=== PATIENT | female | born 1960 | race Caucasian/White ===

== ENCOUNTER 2019-01-14 10:54 | Inpatient (IN) | payer OTHER ==
[~2019-01-14] VITALS: Ht 160 cm; Wt 76.9 kg
--- NOTE | ~2019-01-14 | CON ---
[address] [address] CONSULTATION Name: MEGAN DALEY Room: [address] IN ..#: [id number] Admission: 01/14/19 Attend Phys: Daniel Hernandez Discharge: Date of : 60 Report #: [id number] THIS REPORT FOR: //name// CC: Zonia Bernardo DATE OF SERVICE: 01/15/2019 HISTORY OF PRESENT ILLNESS: This is a very pleasant 58-year-old female with past medical history significant for hypertension, status post gastric sleeve surgery who is presenting for evaluation of acute-onset epigastric abdominal pain. The patient reports she has 10/10 epigastric pain starting yesterday. The pain was constant, nonradiating, localized to the epigastrium. Worse on eating and relieved by pain medication. The patient reports this is the first time she has had this kind of pain. The patient did have gallbladder taken out a couple of years back, she reports for abdominal pain, which was not similar to the current pain she is experiencing. The patient reports associated nausea. No vomiting, hematemesis, hematochezia, melena or any weight loss. PAST MEDICAL HISTORY: Hypertension. PAST SURGICAL HISTORY: The patient had gastric sleeve surgery in 2016, cholecystectomy in 2018 and hysterectomy in the remote past. FAMILY HISTORY: No family history of colorectal or the Mirza-related neoplasia. SOCIAL HISTORY: The patient reports smoking half pack of cigarettes per day and reports taking alcohol on a daily basis. She denies any recreational drug use. REVIEW OF SYSTEMS: A comprehensive 10-point review of systems is negative except for what was mentioned in the HPI. PHYSICAL EXAMINATION: VITAL SIGNS: Temperature ____, pulse 58, respirations 18 and blood pressure 128/67. GENERAL: The patient is alert, awake, oriented x 3. HEENT: Pupils are equal, round and reactive to light and accommodation. Mucous membranes are moist. There is no congestion. LUNGS: Clear to auscultation bilaterally. CARDIOVASCULAR: Rate and rhythm regular. S1, S2 present. ABDOMEN: Soft, mild tenderness to palpation in the epigastric region. EXTREMITIES: Warm and well perfused. There is no edema. LABORATORY DATA: Hemoglobin 11.7, hematocrit 34.4, platelet count 213 and WBC count 7.4. Sodium 144, potassium 4.6, chloride 111, bicarbonate 23, BUN 14, creatinine 0.6. Urine THC screen, cocaine screen, PCP screen and opioid screen, [place] [address] CONSULTATION Name: MEGAN DALEY Room: [address]#: [id number] Admission: 01/14/19 Attend Phys: Daniel Hernandez Discharge: Date of : 60 Report #: [id number] all are positive. ASSESSMENT AND PLAN: Pleasant 58-year-old female with past medical history of hypertension, who is presenting for acute-onset epigastric abdominal pain. The patient was found to have elevated lipase on admission of 4251. Some edema and fluid collection is seen around the pancreas and the second portion of duodenum. The patient appears to have mild acute pancreatitis without any significant local complications. I would recommend getting an EUS as an outpatient to followup on her acute idiopathic pancreatitis. Continue conservative management. Advance diet as tolerated. Thank you for this consultation and please feel free to call or contact us with any further questions. By: [id number] Pollock MD /nt
[2019-01-14 11:02] VITALS: BP 133/70
[2019-01-14] MEDS ORDERED: LOTENSIN10 MG PO (11:07)
[2019-01-14 11:30] LABS: HEMATOCRIT 43.5 % (37.0-47.0); HEMOGLOBIN 14.7 gm/dL (12.0-15.0); MCH 31.8 pg (26.0-34.0); MCHC 33.7 g/dL (28.0-37.0); MCV 94.3 fL (80.0-100.0); MPV 7.9 fl. (7.2-11.1); NUCLEATED RBCS 0 /100WBC; PLATELET COUNT* 314 thou/uL (150-400); RBC 4.61 mil/uL (4.20-5.00); RDW-CV 13.2 % (10.5-14.5); WBC 7.1 thou/uL (4.0-11.0)
[2019-01-14 11:39] LABS: ANION GAP 13 mmol/L (7-16); BUN 14 mg/dL (7-18); CALCIUM 9.1 mg/dL (8.5-10.1); CHLORIDE 105 mmol/L (98-107); CO2 23 mmol/L (21-32); CREATININE 0.9 mg/dL (0.6-1.3); GLUCOSE 140 mg/dL (70-99); POTASSIUM 3.5 mmol/L (3.5-5.1); SODIUM 141 mmol/L (136-145)
[2019-01-14 11:48] LABS: ALBUMIN 3.8 g/dL (3.4-5.0); ALKALINE PHOSPHATASE 76 U/L (46-116); SGOT 69 U/L (15-37); SGPT 38 U/L (30-65); TOTAL BILIRUBIN 1.2 mg/dL (<0.1-1.0); TOTAL PROTEIN 7.3 g/dL (6.4-8.2); TROPONIN-I LEVEL <0.06 ng/mL (<0.06)
[2019-01-14 12:00] LABS: ABSOLUTE EOSINOPHILS 0.1 thou/uL (0.0-0.7); ABSOLUTE MONOCYTES 0.2 thou/uL (0.0-1.2); ABSOLUTE NEUTROPHILS 1.8 thou/uL (1.6-8.1); ATYPICAL LYMPHS 11 %; PLATELET ESTIMATE ADEQUATE
[2019-01-14 12:03] LABS: LIPASE 4251 U/L (73-393)
[2019-01-14 14:36] VITALS: BP 111/69
[2019-01-14 14:47] LABS: CALCIUM 8.1 mg/dL (8.5-10.1); CREATININE 0.7 mg/dL (0.6-1.3); MAGNESIUM 1.4 mg/dL (1.8-2.4); POTASSIUM 3.7 mmol/L (3.5-5.1)
[2019-01-14 15:30] VITALS: BP 128/64
--- NOTE | 2019-01-14 16:06 | NUR ---
ASSESSMENT COMPLETE. PT ADMITTED WITH PANCREATITIS. PT HAS IV FLUIDS INFUSING, NPO AT THIS TIME. GI CONSULT CALLED IN. IV ABX GIVEN ORDERED. PT IS ON ROOM AIR, VSS. PT IS NSR ON TELE MONITOR. UP WITH STANDBY ASSIST. SEE ASSESSMENT AND VITALS FOR OTHER DETAILS. CALL LIGHT WITHIN REACH, WILL CONTINUE PLAN OF CARE
[2019-01-14 16:30] VITALS: BP 119/77
[2019-01-14 19:40] VITALS: BP 126/72
[2019-01-14 23:51] VITALS: BP 119/71
[2019-01-15 04:00] VITALS: BP 128/71
--- NOTE | 2019-01-15 04:59 | NUR ---
PATIENT PROGRESSING TOWARDS GOALS: PATIENT REMAINS ON ROOM AIR, VSS. PATIENT DENIES PAIN, DISCOMFORT, AND NAUSEA. NO SIGNS OF ALCOHOL WITHDRAW THIS SHIFT. PATIENT OBSERVED SLEEPING ON HOURLY ROUNDS. IVF INFUSING PER ORDERS. NPO FOR GI CONSULT. CALL LIGHT WITHIN REACH
[2019-01-15 05:31] LABS: ABSOLUTE EOSINOPHILS 0.7 thou/uL (0.0-0.7); ABSOLUTE MONOCYTES 0.4 thou/uL (0.0-1.2); ABSOLUTE NEUTROPHILS 4.3 thou/uL (1.6-8.1); BASOPHILS 0.2 %; EOSINOPHILS 8.9 %; HEMATOCRIT 34.4 % (37.0-47.0); LYMPHOCYTES 27.3 %; MCH 32.8 pg (26.0-34.0); MCHC 34.1 g/dL (28.0-37.0); MCV 96.1 fL (80.0-100.0); MONOCYTES 5.5 %; MPV 8.5 fl. (7.2-11.1); NUCLEATED RBCS 0 /100WBC; POLYS 58.1 %; RBC 3.58 mil/uL (4.20-5.00); RDW-CV 13.2 % (10.5-14.5); WBC 7.4 thou/uL (4.0-11.0)
[2019-01-15 05:41] LABS: HEMOGLOBIN 11.7 gm/dL (12.0-15.0); PLATELET COUNT* 213 thou/uL (150-400)
[2019-01-15 06:00] LABS: CALCIUM 7.8 mg/dL (8.5-10.1); CREATININE 0.6 mg/dL (0.6-1.3); POTASSIUM 4.6 mmol/L (3.5-5.1)
[2019-01-15 06:13] LABS: ALBUMIN 2.8 g/dL (3.4-5.0); CALCIUM 7.5 mg/dL (8.5-10.1); CREATININE 0.7 mg/dL (0.6-1.3); TOTAL BILIRUBIN 1.2 mg/dL (<0.1-1.0); TOTAL PROTEIN 5.6 g/dL (6.4-8.2)
[2019-01-15 07:51] VITALS: BP 121/60
[2019-01-15 09:58] LABS: AMP/METHAMP Negative (Negative); BARBITURATES Negative (Negative); BENZODIAZEPINES Negative (Negative); METHADONE Negative (Negative); OPIATES POSITIVE (Negative); URINE BILIRUBIN NEGATIVE (Negative); URINE BLOOD NEGATIVE (Negative); URINE CLARITY CLEAR; URINE COLOR YELLOW; URINE GLUCOSE-RANDOM NEGATIVE (Negative); URINE KETONES TRACE (Negative); URINE LEUKOCYTES-REFLEX NEGATIVE (Negative); URINE NITRITE-REFLEX NEGATIVE (Negative); URINE PROTEIN NEGATIVE (Negative); URINE SPECIFIC GRAVITY >= 1.030 (1.005-1.030); URINE UROBILINOGEN 0.2 E.U./dl (0.2-1.0)
--- NOTE | 2019-01-15 10:53 | NUR ---
Pt is A&O. Resides at home with her . Active and independent. No DME. No hx of HH or SNF. Goal is home at dc, no needs anticipated.
[2019-01-15 10:54] LABS: COCAINE POSITIVE (Negative); PCP POSITIVE (Negative); THC POSITIVE (Negative)
[2019-01-15 11:36] VITALS: BP 128/67
[2019-01-15 15:31] VITALS: BP 130/73
--- NOTE | 2019-01-15 15:34 | EKG ---
[place] [address] ELECTROCARDIOGRAM REPORT Name: MEGAN DALEY Room: [address] ADM IN ..#: [id number] Admission: 01/14/19 Attend Phys: Daniel Hernandez Discharge: Date of : 60 Report #: [id number] THIS REPORT FOR: //name// [facility] ED Test Date: 2019-01-14 Test Time: 11:32:07 Pat Name: MEGAN DALEY Department: Room: [facility] [place] Gender: F [place] Burnisher: Angela LOPEZ : 1960 Requested By: Spring Chapman Order Number: [id number] MD: Yasir Natarajan Measurements Intervals [place] Rate: 94 P: 42 NH: 138 QRS: 2 QRSD: 92 T: 58 QT: 390 QTc: 488 Interpretive Statements Sinus rhythm Borderline prolonged QT interval No previous ECG available for comparison Electronically Signed On 01-15-2019 15:34:45 CDT by Yasir Natarajan [email or web address] <ELECTRONICALLY SIGNED> By: Yasir Natarajan MD, [facility] 01/15/19 1534 1132 1132 Yasir Natarajan MD, [facility] /EPI
--- NOTE | 2019-01-15 16:30 | NUR ---
ASSESSMENT COMPLETE. PT ALERT AND ORIENTED X4. PT UP AD TATA WITH STEADY GAIT. TOLERATING CLEAR LIQUIDS AND DENIES PAIN AND N/V. PT HAS IV FLUIDS INFUSING. SR ON TELE MONITOR, ST AT TIMES IN 120'S WITH ACTIVITY. PT REPORTS DIARRHEA STARTING THIS AFTERNOON. WILL COLLECT SPECIMEN AND NOTIFIED PHYSCIAN. PT HAS NO OTHER CONCERNS AT THIS TIME. SEE ASSESSMENT AND VITALS FOR OTHER DETAILS. CALL LIGHT WITHIN REACH, WILL CONTINUE PLAN OF CARE.
[2019-01-15 19:40] VITALS: BP 131/74
[2019-01-15 23:47] VITALS: BP 136/70
--- NOTE | 2019-01-16 04:42 | NUR ---
PATIENT PROGRESSING TOWARDS GOALS: PATIENT DENIES NAUSEA/VOMITING THIS SHIFT. MILD HEADACHE RELIEVED WITH MEDICATION PER MAR AND DARK/QUIET ENVIRONMENT. CIWA REMAINS O. LIQUID STOOL SENT FOR CDIFF CULTURE. POSSIBLE DISCHARGE TODAY.
[2019-01-16 05:19] VITALS: BP 147/74
[2019-01-16 07:30] VITALS: BP 137/73
[2019-01-16 12:30] VITALS: BP 137/73
[2019-01-16] MEDS ORDERED: CIPRO500 MG PO (12:33)
[2019-01-16] MEDS ORDERED: FLAGYL500 M1 PO (12:34)
[2019-01-16] MEDS ORDERED: ONDANSETRON HCL4 M2 PO (12:37)
== END 2019-01-16 13:37 | disposition home or self-care (01) | DRG 371 ==
LOC: M.ERS 10:54 → M.2W 12:51 → M.TBA-ER 12:51 → M.2W 14:52
PROVIDERS: Internal Medicine Gastroenterology; Nurse Practitioner Family; ADMIT Internal Medicine
DX: A04.9 Bacterial intestinal infection, unspecified (principal); K85.20 Alcohol induced acute pancreatitis without necrosis or infection; E44.0 Moderate protein-calorie malnutrition; I10 Essential (primary) hypertension; F17.210 Nicotine dependence, cigarettes, uncomplicated; F10.10 Alcohol abuse, uncomplicated; F14.10 Cocaine abuse, uncomplicated; F12.10 Cannabis abuse, uncomplicated; F16.10 Hallucinogen abuse, uncomplicated; Z90.49 Acquired absence of other specified parts of digestive tract; Z90.710 Acquired absence of both cervix and uterus; Z88.6 Allergy status to analgesic agent; Z68.30 Body mass index [BMI] 30.0-30.9, adult; Z79.899 Other long term (current) drug therapy